=== PATIENT | male | born 1985 | race African-American/Black ===

== ENCOUNTER 2016-11-20 17:50 | Emergency (ER) | payer SELFPAY ==
--- NOTE | 2016-11-20 18:25 | ER Document Report ---
ED Medical Screen (RME) - General Stated Complaint: RIGHT FOOT PAIN Notes: 31 yo male c/o right foot pain x 6 months. no trauma. pt to dorsal foot shooting through to mid foot. + swelling and darkened color. pt admits to prolonged standing. works as cook at [employer]. pain is aggrevated with walking. no hx/o DM. pt was evaluated in ED for same several months ago. TRAVEL OUTSIDE OF THE [place] IN LAST 30 DAYS: No - Related Data Allergies/Adverse Reactions: oxycodone HCl [From Percocet] Allergy (Verified 11/20/16 18:21) Past Medical History - Social History Family history: CVA, DM, Hypertension - Past Medical History Cardiac Medical History: Reports: Hx Hypertension Pulmonary Medical History: Reports: Hx Asthma, Hx Bronchitis Neurological Medical History: Reports: Hx Migraine GI Medical History: Reports: Hx Gastroesophageal Reflux Disease Past Surgical History: Reports: Hx Herniorrhaphy - Immunizations Hx Diphtheria, Pertussis, Tetanus Vaccination: Yes Physical Exam - Vital signs Vitals: Temp Pulse Resp BP Pulse Ox 98.4 F 110 H 20 146/98 H 96 11/20/16 18:00 11/20/16 18:00 11/20/16 18:00 11/20/16 18:00 11/20/16 18:00 Course - Vital Signs Vital signs: Temp Pulse Resp BP Pulse Ox 98.4 F 110 H 20 146/98 H 96 11/20/16 18:00 11/20/16 18:00 11/20/16 18:00 11/20/16 18:00 11/20/16 18:00
--- NOTE | 2016-11-20 19:53 | ER Document Report ---
HPI - HPI Patient complains to provider of: left foot pain Onset: Other - over 6 months Onset/Duration: Persistent Quality of pain: Achy Severity: Severe Pain Level: 5 Context: Patient presents to the emergency department with complaints of right dorsal foot/ankle pain for over 6 months. Patient reports he has been evaluated here once before for the foot pain. He thought it was his foot hurting but realized that the pain was coming from the top of his ankle. He denies injury. He reports the pain will increase while he works. He works as a cook. He also reports that certain shoes will help alleviate the pain. He denies other symptoms such as fever vomiting diarrhea. Associated Symptoms: None Exacerbated by: Walking Relieved by: Denies Similar symptoms previously: Yes Recently seen / treated by doctor: Yes - DERM Skin Color: Normal Past Medical History - General Information source: Patient - Social History Smoking Status: Never Smoker Cigarette use (# per day): No Chew tobacco use (# tins/day): No Frequency of alcohol use: Rare Drug Abuse: None Occupation: cook Lives with: Family Family History: Reviewed & Not Pertinent Patient has suicidal ideation: No Patient has homicidal ideation: No - Past Medical History Cardiac Medical History: Reports: Hx Hypertension Pulmonary Medical History: Reports: Hx Asthma, Hx Bronchitis Neurological Medical History: Reports: Hx Migraine Renal/ Medical History: Denies: Hx Peritoneal Dialysis GI Medical History: Reports: Hx Gastroesophageal Reflux Disease Past Surgical History: Reports: Hx Herniorrhaphy - Immunizations Hx Diphtheria, Pertussis, Tetanus Vaccination: Yes Vertical Provider Document - CONSTITUTIONAL Agree With Documented VS: Yes Exam Limitations: No Limitations General Appearance: WD/WN, No Apparent Distress - INFECTION CONTROL TRAVEL OUTSIDE OF THE [place] IN LAST 30 DAYS: No - HEENT HEENT: Atraumatic, Normocephalic - NECK Neck: Normal Inspection, Supple - RESPIRATORY Respiratory: No Respiratory Distress O2 Sat by Pulse Oximetry: 96 - CARDIOVASCULAR Cardiovascular: Tachycardia - MUSCULOSKELETAL/EXTREMETIES Musculoskeletal/Extremeties: MAEW, FROM, Tender - right dorsal ankle pain, no erythema, no swelling, no warmth, no obvious deformity. good pedal pulse, brisk cap refill - NEURO Level of Consciousness: Awake, Alert, Appropriate Course - Re-evaluation Re-evalutation: 11/20/16 20:19 Patient instructed on negative x-ray. Patient instructed on different types of care, place. Patient also instructed on Motrin for the pain. He was instructed to follow up with orthopedics for continued pain. - Vital Signs Vital signs: Temp Pulse Resp BP Pulse Ox 98.4 F 110 H 20 146/98 H 96 11/20/16 18:00 11/20/16 18:00 11/20/16 18:00 11/20/16 18:00 11/20/16 18:00 - Diagnostic Test Radiology reviewed: Image reviewed, Reports reviewed - IMPRESSION: NO RADIOGRAPHIC EVIDENCE OF ACUTE INJURY. Discharge - Discharge Clinical Impression: right dorsal ankle pain, Elevated blood pressure reading Condition: Stable Disposition: HOME, SELF-CARE Additional Instructions: *You have been evaluated for ankle pain, elevated blood pressure reading *Adjust your footwear as discussed *Rest/Ice/Elevate *Follow up with orthopedics for continued pain-call for an appointment *Take advil or ibuprofen as indicated *Monitor your blood pressure. Your blood pressure was elevated today. This may be because you were anxious, in pain or because you need medication. It is important to follow up with your primary care provider for full evaluation. *Return to ED for worsening condition, changes, needs Forms: Elevated Blood Pressure, Return to Work
[2016-11-20 20:49] VITALS: BP 141/100
== END 2016-11-20 20:42 | disposition home or self-care (01) ==
LOC: ER 17:50
DX: M79.672 Pain in left foot (principal); I10 Essential (primary) hypertension
CPT/HCPCS: 99283

== ENCOUNTER 2017-01-04 21:07 | Emergency (ER) | payer SELFPAY ==
--- NOTE | 2017-01-05 00:54 | ER Document Report ---
ED General - General Chief Complaint: Leg Pain Stated Complaint: LEG PAIN Notes: Patient is a pleasant 31-year-old old male presents with complaint of feeling a pop in his left calf muscle when walking. Patient says the pain is at the base of the calf muscle. He denies any pain along the Achilles tendon. He denies any difficulty plantar flexing or dorsiflexing his foot; however, he does have some pain with plantar flexion against resistance. He denies any other injuries. No other complaints at this time. TRAVEL OUTSIDE OF THE [place] IN LAST 30 DAYS: No - Related Data Allergies/Adverse Reactions: oxycodone HCl [From Percocet] Allergy (Verified 11/20/16 18:21) Past Medical History - Social History Smoking Status: Unknown if Ever Smoked Frequency of alcohol use: None Drug Abuse: None Family History: Reviewed & Not Pertinent Patient has suicidal ideation: No Patient has homicidal ideation: No - Past Medical History Cardiac Medical History: Reports: Hx Hypertension Pulmonary Medical History: Reports: Hx Asthma, Hx Bronchitis Neurological Medical History: Reports: Hx Migraine Renal/ Medical History: Denies: Hx Peritoneal Dialysis GI Medical History: Reports: Hx Gastroesophageal Reflux Disease Past Surgical History: Reports: Hx Herniorrhaphy - Immunizations Hx Diphtheria, Pertussis, Tetanus Vaccination: Yes Review of Systems - Review of Systems Notes: My Normal Review Basic REVIEW OF SYSTEMS: CONSTITUTIONAL : Denies fever, chills, or sweats. Denies recent illness. MUSCULOSKELETAL: Left calf pain. SKIN: Denies rash or skin lesions. NEUROLOGICAL: Denies sensory or motor loss.. ALL OTHER SYSTEMS REVIEWED AND NEGATIVE. Physical Exam - Vital signs Vitals: Temp Pulse Resp BP Pulse Ox 97.9 F 100 14 138/94 H 99 01/04/17 21:17 01/04/17 21:17 01/04/17 21:17 01/04/17 21:17 01/04/17 21:17 - Notes Notes: General Appearance: Well nourished, alert, cooperative, no acute distress, no obvious discomfort. Vitals: reviewed, See vital signs table. Extremities: strength 5/5 in all extremities, good pulses in all extremities, no bruising or swelling to the left calf muscle. Patient does have some pain to palpation at the base of the left calf muscle with a Achilles inserts. This is more in the medial aspect of the muscle. I did do a bedside ultrasound. Bedside ultrasound does not show any evidence of Achilles tendon rupture. Patient has normal Morfin's test. He is able to plantarflex against resistance with good strength but does have some pain in doing so., no edema. Skin: warm, dry, appropriate color, no rash Neuro: speech clear, oriented x 3, normal affect, responds appropriately to questions. Course - Vital Signs Vital signs: Temp Pulse Resp BP Pulse Ox 97.9 F 100 14 138/94 H 99 01/04/17 21:17 01/04/17 21:17 01/04/17 21:17 01/04/17 21:17 01/04/17 21:17 - Transfer of Care Notes: 01/05/17 00:56 Patient has what appears to be a small tear with Achilles tendon inserts against the calf muscle on the left side. I will place him on crutches place an Tay wrap around the calf itself. On follow-up with orthopedist. I encouraged return to ER if has worsening pain, swelling, or feels unwell. Patient agrees with plan and will be discharged home. Dictation of this chart was performed using voice recognition software; therefore, there may be some unintended grammatical errors. Discharge - Discharge Clinical Impression: Calf pain Qualifiers: Laterality: left Qualified Code(s): M79.662 - Pain in left lower leg Gastrocnemius muscle tear Qualifiers: Encounter type: initial encounter Laterality: left Qualified Code(s): S86.812A - Strain of other muscle(s) and tendon(s) at lower leg level, left leg, initial encounter Condition: Good Disposition: HOME, SELF-CARE Additional Instructions: I suspect you have a small tear where the achilles tendon inserts into the calf muscle. It is very important you wear the tay bandage for support and stay nonweight bearing. Please continue to use the crutches. Please follow up with Dr. Snell, orthopedist, for reevaluation. Forms: Special Work Note Referrals: JOEL SNELL MD [ACTIVE STAFF] - 01/07/17
[2017-01-05 01:23] VITALS: BP 144/85
== END 2017-01-05 01:19 | disposition home or self-care (01) ==
LOC: ER 21:07
DX: S86.812A Strain of other muscle(s) and tendon(s) at lower leg level, left leg, initial encounter (principal); M79.662 Pain in left lower leg; X58.XXXA Exposure to other specified factors, initial encounter
CPT/HCPCS: 99283

== ENCOUNTER 2017-07-21 08:51 | Emergency (ER) | payer SELFPAY ==
[2017-07-21] MEDS ORDERED: GUAIFENESIN 600 MG TABLET.SA PO ONE (09:23)
[2017-07-21] MEDS ORDERED: HYDROCHLOROTHIAZIDE 25 MG TABLET PO ONE (09:25)
[2017-07-21] MEDS ORDERED: LISINOPRIL 10 MG TABLET PO ONE (09:25)
--- NOTE | 2017-07-21 09:29 | ER Document Report ---
ED ENT - General Chief Complaint: Sore Throat Stated Complaint: CONGESTION Time Seen by Provider: 07/21/17 09:07 Mode of Arrival: Ambulatory Information source: Patient Notes: 31-year-old male presents to ED for complaint of sore throat congestion and cough since . He states he has not had his blood pressure medicine in 3 months because he did not have the money to go to the doctor. TRAVEL OUTSIDE OF THE [place] IN LAST 30 DAYS: No - HPI Patient complains to provider of: Ear problem, Nose problem, Throat problem Onset: Other - Started Onset/Duration: Gradual, Persistent Quality of pain: Achy, Dull Severity: Moderate Pain Level: 4 Context: Recent Illness Associated symptoms: Cough, Runny nose, Sinus pain, Sinus drainage, Sore throat Similar symptoms previously: Yes Recently seen / treated by doctor: No - Related Data Allergies/Adverse Reactions: oxycodone HCl [From Percocet] Allergy (Verified 07/21/17 08:54) Past Medical History - General Information source: Patient - Social History Smoking Status: Current Every Day Smoker Cigarette use (# per day): Yes - Half pack per day Chew tobacco use (# tins/day): No Smoking Education Provided: Yes - Less than 2 minutes Frequency of alcohol use: Occasional Drug Abuse: None Occupation: [employer] Lives with: Family Family History: DM, Hyperlipidemia, Hypertension, Malignancy. denies: Arthritis , CAD, COPD, CVA, Thyroid Disfunction Patient has suicidal ideation: No Patient has homicidal ideation: No - Past Medical History Cardiac Medical History: Reports: Hx Hypertension Pulmonary Medical History: Reports: Hx Asthma, Hx Bronchitis EENT Medical History: Reports: None Neurological Medical History: Reports: Hx Migraine Endocrine Medical History: Reports: None Renal/ Medical History: Reports: None Malignancy Medical History: Reports None GI Medical History: Reports: Hx Gastroesophageal Reflux Disease Musculoskeltal Medical History: Reports None Skin Medical History: Reports None Psychiatric Medical History: Reports: None Traumatic Medical History: Reports: None Infectious Medical History: Reports: None Past Surgical History: Reports: Hx Umbilical Hernia - Immunizations Immunizations up to date: Yes Hx Diphtheria, Pertussis, Tetanus Vaccination: Yes Review of Systems - Review of Systems Constitutional: Recent illness EENT: Ear pain, Nose discharge, Sinus pressure, Sinus discharge Cardiovascular: No symptoms reported Respiratory: Cough Gastrointestinal: No symptoms reported Genitourinary: No symptoms reported Male Genitourinary: No symptoms reported Musculoskeletal: No symptoms reported Skin: No symptoms reported Hematologic/Lymphatic: No symptoms reported Neurological/Psychological: No symptoms reported -: Yes All other systems reviewed and negative Physical Exam - Vital signs Vitals: Temp Pulse Resp BP Pulse Ox 98.4 F 97 18 145/101 H 97 07/21/17 08:53 07/21/17 08:53 07/21/17 08:53 07/21/17 08:53 07/21/17 08:53 Interpretation: Normal - General General appearance: Appears well, Alert - HEENT Head: Normocephalic, Atraumatic Eyes: Normal Pupils: PERRL Ears: Normal External canal: Normal Tympanic membrane: Normal Nasal: Purulent discharge, Swelling Mouth/Lips: Normal Mucous membranes: Normal Pharynx: Post nasal drainage Neck: Normal - Respiratory Respiratory status: No respiratory distress Chest status: Nontender Breath sounds: Normal, Nonproductive cough Chest palpation: Normal - Cardiovascular Rhythm: Regular Heart sounds: Normal auscultation Murmur: No - Abdominal Inspection: Normal Distension: No distension Bowel sounds: Normal Tenderness: Nontender Organomegaly: No organomegaly - Back Back: Normal, Nontender - Extremities General upper extremity: Normal inspection, Nontender, Normal color, Normal ROM , Normal temperature General lower extremity: Normal inspection, Nontender, Normal color, Normal ROM , Normal temperature, Normal weight bearing. No: Mary Jo's sign - Neurological Neuro grossly intact: Yes Cognition: Normal Orientation: AAOx4 Jose J Coma Scale Eye Opening: Spontaneous Nickerson Coma Scale Verbal: Oriented Nickerson Coma Scale Motor: Obeys Commands Nickerson Coma Scale Total: 15 Speech: Normal Motor strength normal: LUE, RUE, LLE, RLE Sensory: Normal - Psychological Associated symptoms: Normal affect, Normal mood - Skin Skin Temperature: Warm Skin Moisture: Dry Skin Color: Normal Course - Re-evaluation Re-evalutation: 07/21/17 13:02 Patient signs and symptoms consistent with upper respiratory infection. Patient was given instructions on care for an upper respiratory infection. Patient also had elevated blood pressure states she has not taken his blood pressure for about 3 months because he cannot afford to go to the doctor. Patient was written a prescription for his lisinopril hydrochlorothiazide instructed to please follow-up with his doctor. - Vital Signs Vital signs: Temp Pulse Resp BP Pulse Ox 98.0 F 90 16 132/98 H 97 07/21/17 09:57 07/21/17 09:57 07/21/17 09:57 07/21/17 09:57 07/21/17 09:57 Discharge - Discharge Clinical Impression: htn out of medication URI (upper respiratory infection) Qualifiers: URI type: unspecified URI Qualified Code(s): J06.9 - Acute upper respiratory infection, unspecified Condition: Stable Disposition: HOME, SELF-CARE Instructions: Family Physicians / Practices Additional Instructions: UPPER RESPIRATORY ILLNESS: You have a viral infection of the respiratory passages -- a "cold." This common infection causes nasal congestion, drainage, and often sore throat and cough. It is highly contagious. The disease usually lasts about 10 to 14 days. There is no "cure" for the viral infection -- it must run its course. If there is a complication, such as bacterial infection in the nose, sinuses, middle ear, or bronchial tubes, antibiotics may be required. The antibiotics won't affect the virus. Drink plenty of fluids. A humidifier may help. An expectorant medication or decongestant may make you more comfortable. Use acetaminophen or ibuprofen for fever or aches. See the doctor if fever persists over two days, if there is any significant worsening of your symptoms, or if you simply fail to improve as expected. COUGH-SUPPRESSANT & EXPECTORANT MEDICATION: You are to use a cough medication as needed for relief of symptoms. This medicine is a combination of an expectorant (to make the mucous thinner and more easily "coughed up") and a cough suppressant (to reduce the frequency of coughing). The cough-suppressant medicine is related to narcotics. You may experience mild nausea and sleepiness. Some patients who are very sensitive to narcotics may have stomach pain from this medicine. Taking the medicine with food reduces these side effects. Do not drive or work with machinery until you know how this medicine affects you. The expectorant should have no side effects. Iodine-containing expectorants (such as organidin) should not be taken by persons with active thyroid disease unless approved by your doctor. Call the doctor if you develop shortness of breath, hives, rash, itching, lightheadedness, or severe nausea and vomiting. USE OF ACETAMINOPHEN (Tylenol): Acetaminophen may be taken for pain relief or fever control. It's much safer than aspirin, offering a wider range of "safe" dosages. It is safe during . Some brand names are Tylenol, Panadol, Datril, Anacin 3, Tempra, and Liquiprin. Acetaminophen can be repeated every four hours. The following are maximum recommended dosages: >89 pounds or adults 650 mg to 900 mg Acetaminophen can be repeated every four hours. Maximum dose not to exceed 4000 mg a day. SMOKING: If you smoke, you should stop smoking. The tar and chemicals in cigarette smoke are harmful. Smoking has been shown to cause: emphysema chronic bronchitis lung cancer mouth and throat cancer stomach and pancreas cancer premature aging defects In addition, smoking increases ear and lung infections in children of smokers. Your blood pressure was elevated today you states you have high blood pressure and her space to be taken lisinopril hydrochlorothiazide 20/25 but have not been to the doctor in 3 months. It is extremely important that you take your blood pressure medicine as prescribed as high blood pressure can calls many of your organs to malfunction due to high blood pressure please be sure to keep your medication up-to-date go to the pharmacy asked them to see if the far doctor will renew your blood pressure even if you take go to the doctor but please be sure to take your blood pressure medication as prescribed. FOLLOW-UP CARE: If you have been referred to a physician for follow-up care, call the physician s office for an appointment as you were instructed or within the next two days. If you experience worsening or a significant change in your symptoms, notify the physician immediately or return to the Emergency Department at any time for re-evaluation. Prescriptions: Lisinopril/Hydrochlorothiazide [Lisinopril-Hctz 20-25 mg Tab] 1 each PO DAILY # 30 tablet
[2017-07-21 10:17] VITALS: BP 132/98
== END 2017-07-21 10:00 | disposition home or self-care (01) ==
LOC: ER 08:51
DX: J06.9 Acute upper respiratory infection, unspecified (principal); I10 Essential (primary) hypertension; F17.210 Nicotine dependence, cigarettes, uncomplicated; Z88.6 Allergy status to analgesic agent
CPT/HCPCS: 99282

== ENCOUNTER 2018-08-07 23:05 | Emergency (ER) | payer SELFPAY ==
--- NOTE | 2018-08-07 23:46 | RADIOLOGY REPORT (SQ) ---
EXAM DESCRIPTION: XR CHEST 2 VIEWS COMPLETED DATE/TME: 08/07/2018 00:00 CLINICAL HISTORY: 32 years, Male, cough COMPARISON: Prior chest x-ray 04/12/2013 NUMBER OF VIEWS: 2 TECHNIQUE: Frontal and lateral views of the chest LIMITATIONS: None. FINDINGS: The heart size is normal. Lungs are clear. There is focal bulla/bleb formation in the medial right upper lobe. No pneumothorax. IMPRESSION: No acute cardiopulmonary process 2010 [facility] [employer]- All Rights Reserved
[2018-08-07] MEDS ORDERED: KETOROLAC TROMETHAMINE INJ/PF 30 MG/1 ML SDV IM ONE (23:53)
[2018-08-07] MEDS ORDERED: ALBUTEROL SULFATE HFA (90 MCG/PUFF) 8 GM MDI (1 MDI/ER DISP) IH ONE (23:54)
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
[2018-08-08 00:35] VITALS: BP 129/87
== END 2018-08-08 00:36 | disposition home or self-care (01) ==
LOC: ER 23:05
DX: M54.41 Lumbago with sciatica, right side (principal); R25.2 Cramp and spasm; K43.9 Ventral hernia without obstruction or gangrene; J45.909 Unspecified asthma, uncomplicated; F17.200 Nicotine dependence, unspecified, uncomplicated; R05 Cough; Z88.5 Allergy status to narcotic agent; I10 Essential (primary) hypertension
CPT/HCPCS: 99285; 96372; 71046; J1885; J3490

== ENCOUNTER 2018-09-11 09:43 | Emergency (ER) | payer BC ==
[2018-09-11 09:51] VITALS: BP 152/109
--- NOTE | 2018-09-11 09:57 | ER Document Report ---
ED Medical Screen (RME) - General Chief Complaint: Rectal Pain Stated Complaint: RECTAL PAIN Time Seen by Provider: 09/11/18 09:55 Notes: 32-year-old male patient complains of painful bump in the rectal area for the past 5 days. He has never had anything like this before. I have greeted and performed a rapid initial assessment of this patient. A comprehensive ED assessment and evaluation of the patient, analysis of test results and completion of the medical decision making process will be conducted by additional ED providers. TRAVEL OUTSIDE OF THE [place] IN LAST 30 DAYS: No - Related Data Allergies/Adverse Reactions: oxycodone HCl [From Percocet] Allergy (Verified 07/24/17 16:46) Past Medical History - Social History Family history: CVA, DM, Hypertension - Past Medical History Cardiac Medical History: Reports: Hx Hypertension Pulmonary Medical History: Reports: Hx Asthma, Hx Bronchitis Neurological Medical History: Reports: Hx Migraine Renal/ Medical History: Denies: Hx Peritoneal Dialysis GI Medical History: Reports: Hx Gastroesophageal Reflux Disease Past Surgical History: Reports: Hx Herniorrhaphy - Umbilical hernia repair with mesh - Immunizations Immunizations up to date: Yes Hx Diphtheria, Pertussis, Tetanus Vaccination: Yes History of Influenza Vaccine for 06/2017 - 11/2017 Season: No Physical Exam - Vital signs Vitals: Temp Pulse Resp BP Pulse Ox 98.3 F 101 H 16 152/109 H 96 09/11/18 09:49 09/11/18 09:49 09/11/18 09:49 09/11/18 09:49 09/11/18 09:49 Course - Vital Signs Vital signs: Temp Pulse Resp BP Pulse Ox 98.3 F 101 H 16 152/109 H 96 09/11/18 09:49 09/11/18 09:49 09/11/18 09:49 09/11/18 09:49 09/11/18 09:49
[2018-09-11] MEDS ORDERED: HYDROCORTISONE ACETATE 25 MG SUPP.RECT PR ONE (10:44)
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
== END 2018-09-11 10:59 | disposition home or self-care (01) ==
LOC: ER 09:43
DX: K64.4 Residual hemorrhoidal skin tags (principal); K62.89 Other specified diseases of anus and rectum; I10 Essential (primary) hypertension; F17.210 Nicotine dependence, cigarettes, uncomplicated; J45.909 Unspecified asthma, uncomplicated
CPT/HCPCS: 99406; 99283; J3490